=== PATIENT | male | born 1980 | race Caucasian/White ===

== ENCOUNTER 2021-07-11 20:11 | Emergency (ER) | payer OTHER ==
[2021-07-11] MEDS ORDERED: Ketorolac 60 MG/2 ML SDV IM ONE (22:09)
== END 2021-07-11 22:19 | disposition home or self-care (01) ==
LOC: JD.ED 20:11
DX: M10.9 Gout, unspecified (principal); F17.210 Nicotine dependence, cigarettes, uncomplicated
CPT/HCPCS: 36415; 80053; 84550; 85025; 86140; 96372; 99283; J1885